=== PATIENT | male | born 1955 | race Caucasian/White ===

== ENCOUNTER 2017-04-25 16:18 | Emergency (ER) | payer OTHER, MEDICAID ==
--- NOTE | 2017-04-25 16:41 | EDPHY ---
H & P Time Seen by Provider: 04/25/17 16:36 - Personal History Tetanus Vaccine Date: 08/02 - Medical/Surgical History Hx Asthma: No Hx Chronic Respiratory Disease: No Hx Diabetes: Yes Hx Cardiac Disease: No Hx Renal Disease: Yes Hx Cirrhosis: Yes Hx Alcoholism: No Hx HIV/AIDS: No Hx Splenectomy or Spleen Trauma: No Other PMH: End-stage Hepatitis C, cirrhosis, diabetes, osteoarthritis, foot surgery, opiate dependence, chronic abdominal and leg pain - Social History Smoking Status: Current every day smoker Constitutional: Initial Vital Signs Temperature (C) 36.7 C 04/25/17 17:14 Heart Rate 60 04/25/17 17:14 Respiratory Rate 16 04/25/17 17:14 Blood Pressure 123/69 H 04/25/17 17:14 O2 Sat (%) 97 04/25/17 17:14 O2 Delivery Mode Room Air Allergies/Adverse Reactions: cyclobenzaprine HCl [From Flexeril] Allergy (Verified 09/09/14 12:34) mold Allergy (Uncoded 09/09/14 12:34) seasonal allergies Allergy (Uncoded 09/09/14 12:34) Home Medications: Medication Instructions Recorded Albuterol [Proventil Inhaler HFA 1 puffs IH QID #1 mdi 03/04/15 (*)] Doxepin HCl [SINEquan 10 MG (*)] 10 mg PO HS #30 cap 03/04/15 Gabapentin [Neurontin 100 MG (*)] 100 mg PO TID #90 cap 03/04/15 Hydrochlorothiazide [HCTZ (*)] 12.5 mg PO DAILY #15 tab 03/04/15 Ipratropium/Albuterol [Combivent 1 inh IH QID #1 mdi 03/04/15 Respimat Inhal [place](*)] Lisinopril [Zestril 40 mg (*)] 40 mg PO DAILY #30 tab 03/04/15 Metoprolol Tartrate [Lopressor 25 25 mg PO BID #60 tab 03/04/15 mg (*)] Miconazole Nitrate [Micatin 2% 1 elizabeth TP DAILY PRN 30 Days 03/04/15 Cream (*)] Venlafaxine Xr [Effexor Xr] 150 mg PO DAILY #30 cap 03/04/15 Zolpidem Tartrate [Ambien 5MG (*)] 5 mg PO HS PRN #0 tab 03/04/15 amLODIPine BESYLATE [Norvasc 5 mg 5 mg PO HS #30 tab 03/04/15 (*)] morphINE IR [morphINE IR 15 mg (*)] 15 mg PO Q6 PRN #12 tab 09/05/15 Medical Decision Making - Diagnostics Imaging Results: Imaging Impressions Ribs w/Chest X-Ray 04/25/17 16:49 Impression: 3 left rib fractures.. Imaging: I viewed and interpreted images myself ED Course/Re-evaluation: CHIEF COMPLAINT: Rib pain HISTORY OF PRESENT ILLNESS: This patient is a 62 year old male complaining of left-sided rib pain and left leg pain secondary to a mechanical fall earlier today. He is managed for chronic rib and abdominal pain. He fell on his left side, and has pain in his left ribs and his left knee, and feels he may have a pinched nerve in his leg. He endorses abdominal pain, but this is not different from his usual chronic pain. No fever, chills, vomiting, or other associated symptoms. He cannot identify any precipitating medical event or concerns. REVIEW OF SYSTEMS: A 10 point review of systems was performed and is negative with the exception of the elements mentioned in the history of present illness. PHYSICAL EXAM: HR, BP, O2 Sat, RR. Temp noted General Appearance: Alert, well hydrated, appropriate, and non-toxic appearing. Head: Atraumatic without scalp tenderness or obvious injury Eyes: Pupils equal, round, reactive to light and accommodation, EOMI, no trauma , no injection. Ears: Clear bilaterally, no perforation, normal landmarks Nose: Atraumatic, no rhinorrhea, clear. Throat: There is no erythema or exudates, no lesions, normal tonsils, mucus membranes moist. Neck: Supple, 2+ carotid upstroke, nontender, no lymphadenopathy. Respiratory: No retractions, no distress, no wheezes, and no accessory muscle use. Lungs are clear to auscultation bilaterally. Cardiovascular: Regular rate and rhythm, no murmurs, rubs, or gallops. Good capillary refill all extremities. Gastrointestinal: Abdomen is soft, nontender, non-distended, no masses, no rebound, no guarding, no peritoneal signs. Musculoskeletal: Tenderness to left ribs. Normal active ROM of all extremities , atraumatic. Neurological: Alert, appropriate, and interactive. The patient has normal DTRs and non-focal cranial nerves, motor, sensory, and cerebellar exam. Skin: Abrasions to left knee, left elbow. No rashes, good turgor, no nodules on palpation. Past medical history: End-stage Hepatitis C, Cirrhosis, Diabetes, Osteoarthritis , Opiate dependence, Chronic abdominal and leg pain Past surgical history: Foot surgery Family history: Noncontributory Social history: Lives at [facility]. Current tobacco use. DIFFERENTIAL DIAGNOSIS: The differential diagnosis for the patient's trauma included but was not limited to intracranial injury, long bone and pelvic bone fractures, spinal injury, intra-abdominal injury, and intra-thoracic injury. MEDICAL DECISION MAKIN62 year old male presents with left rib pain and leg pain secondary to a fall. Physical exam reveals abrasions to left elbow and left knee. Plan for x-ray of chest and ribs. X-ray reveals 3 left rib fractures. Plan to discharge home in good condition. Follow up and return precautions discussed. The patient is comfortable with this plan. Departure - Departure Disposition: Home, Routine, Self-Care Clinical Impression: Rib contusion Qualifiers: Encounter type: initial encounter Laterality: left Qualified Code(s): S20.212A - Contusion of left front wall of thorax, initial encounter Rib fracture Qualifiers: Encounter type: initial encounter Rib fracture type: multiple ribs Fracture type: closed Laterality: left Qualified Code(s): S22.42XA - Multiple fractures of ribs, left side, initial encounter for closed fracture Condition: Good Instructions: Rib Fracture (ED), Rib Contusion (ED) Additional Instructions: 1. Maintain your current pain control medication regimen for pain relief. 2. Follow up with your primary care provider next week for continuing concerns. Follow up with orthopedics for continued management of your rib fractures as directed. 3. Return to the emergency department for uncontrollable pain, shortness of breath, chest pain, fever, or other worsening of condition. Referrals: [facility],. [Clinic] - As per Instructions Patient,NotPresent [Unknown] - As per Instructions Sean Calzada MD [Medical Doctor] - As per Instructions Report Scribed for: Pawel Fair Report Scribed by: Liz Campa Date of Report: 04/25/17 Time of Report: 16:44
[2017-04-25 17:19] VITALS: RESP 16; TEMP 98.1; O2SAT 97
[2017-04-25 17:55] VITALS: BP 102/69; PULSE 58
== END 2017-04-25 17:55 | disposition home or self-care (01) ==
LOC: EDUNIT#
DX: S22.42XA Multiple fractures of ribs, left side, initial encounter for closed fracture (principal); S20.212A Contusion of left front wall of thorax, initial encounter; E11.9 Type 2 diabetes mellitus without complications; F17.200 Nicotine dependence, unspecified, uncomplicated; W18.39XA Other fall on same level, initial encounter

== ENCOUNTER 2017-06-30 06:01 | Emergency (ER) | payer OTHER, MEDICAID ==
--- NOTE | 2017-06-30 06:29 | EDPHY ---
H & P HPI/ROS: HPI The patient presents brought in by ambulance asking for medical clearance to go to [facility] for or detox from morphine and lorazepam which he has been taking long-term for lower back pain. He currently has resides at [facility] and has been there for the last 2 and half years, previously he was homeless. He had some issues with his pain medication according to the cyanide case hardener at [facility], sometimes claiming that he did not receive his morphine. Thus, on June 20 he was changed from morphine 30 mg three times daily to Embeda, in attempt to wean him from his opiates. Also, his lorazepam which he previously received 1 mg twice daily was tapered on June 16. Apparently he is followed by a pain specialist clinic, however they are firing him from their practice. He does complain of right-sided leg pain after assisting another resident today weak, wheeling her around the facility. The pain is achy, throughout his leg, is worse with ambulation. He does not have any swelling of the leg. REVIEW OF SYSTEMS Constitutional: No fever, no chills. Eyes: No discharge. ENT: No sore throat. Cardiovascular: No chest pain, no palpitations. Respiratory: No cough, no shortness of breath. Gastrointestinal: No abdominal pain, no vomiting. Genitourinary: No hematuria. Musculoskeletal: No back pain. Skin: No rashes. Neurological: No headache. PMHx: COPD, hypertension, type 2 diabetes, hepatitis-C, chronic pain Soc Hx: Resides at [facility] PHYSICAL General Appearance: Alert, no distress Eyes: Pupils equal and round no pallor or injection ENT, Mouth: Mucous membranes moist Respiratory: There are no retractions, lungs are clear to auscultation Cardiovascular: Regular rate and rhythm Gastrointestinal: Abdomen is soft and non-tender, no masses, bowel sounds normal Neurological: A&O, moves all extremities Skin: Warm and dry, no rashes Musculoskeletal: Neck is supple non tender Extremities: symmetrical, full range of motion Psychiatric: Patient is oriented X 3, there is no agitation Source: Patient Exam Limitations: No limitations - Personal History Tetanus Vaccine Date: 08/02 - Medical/Surgical History Hx Asthma: No Hx Chronic Respiratory Disease: No Hx Diabetes: Yes Hx Cardiac Disease: No Hx Renal Disease: Yes Hx Cirrhosis: Yes Hx Alcoholism: No Hx HIV/AIDS: No Hx Splenectomy or Spleen Trauma: No Other PMH: End-stage Hepatitis C, cirrhosis, diabetes, osteoarthritis, foot surgery, opiate dependence, chronic abdominal and leg pain - Social History Smoking Status: Current every day smoker Allergies/Adverse Reactions: cyclobenzaprine HCl [From Flexeril] Allergy (Verified 06/30/17 06:22) mold Allergy (Uncoded 06/30/17 06:22) seasonal allergies Allergy (Uncoded 06/30/17 06:22) Home Medications: Medication Instructions Recorded Albuterol [Proventil Inhaler HFA 1 puffs IH QID #1 mdi 03/04/15 (*)] Doxepin HCl [SINEquan 10 MG (*)] 10 mg PO HS #30 cap 03/04/15 Gabapentin [Neurontin 100 MG (*)] 100 mg PO TID #90 cap 03/04/15 Hydrochlorothiazide [HCTZ (*)] 12.5 mg PO DAILY #15 tab 03/04/15 Ipratropium/Albuterol [Combivent 1 inh IH QID #1 mdi 03/04/15 Respimat Inhal [place](*)] Lisinopril [Zestril 40 mg (*)] 40 mg PO DAILY #30 tab 03/04/15 Metoprolol Tartrate [Lopressor 25 25 mg PO BID #60 tab 03/04/15 mg (*)] Miconazole Nitrate [Micatin 2% 1 elizabeth TP DAILY PRN 30 Days cream 03/04/15 Cream (*)] Venlafaxine Xr [Effexor Xr] 150 mg PO DAILY #30 cap 03/04/15 Zolpidem Tartrate [Ambien 5MG (*)] 5 mg PO HS PRN #0 tab 03/04/15 amLODIPine BESYLATE [Norvasc 5 mg 5 mg PO HS #30 tab 03/04/15 (*)] morphINE IR [morphINE IR 15 mg (*)] 15 mg PO Q6 PRN #12 tab 09/05/15 Medical Decision Making Differential Diagnosis: This is a 62-year-old man brought in by ambulance from [facility] with past medical history of COPD, hypertension, type 2 diabetes, hepatitis-C who presents asking for detox at [facility] from morphine and lorazepam. Over the last 2 weeks, his facility has been attempting to taper his medications. It seems he is dissatisfied with the way they are doing this and he says that the nurses are "pushing him out". We were able to contact [facility] and the cyanide case hardener that we spoke with their reported that there was some concern that the patient was abusing his pain medication and thus they initiated this taper. The patient has been fired from his pain management clinic as well. We were able to reach [facility] and they tell us that they have spoken with the patient on the phone and they have have instructed him that he needs to call to make an appointment for intake at their facility as an outpatient and they have told him not to go to the emergency department actually. Once he makes an appointment, then he can arrange for further care there if appropriate. I feel this is misuse the emergency department and I have explained this to the patient. He will be discharged back to [facility]. He has no concerning symptoms or physical exam features for his leg pain. I doubt that he has a DVT , fracture, dislocation of any sort. He likely has a sprain or strain of his leg from the walking today. Departure - Departure Disposition: Home, Routine, Self-Care Clinical Impression: Right leg pain Back pain Qualifiers: Back pain location: low back pain Chronicity: chronic Back pain laterality: unspecified Sciatica presence: unspecified whether sciatica present Qualified Code(s): M54.5 - Low back pain Condition: Good Instructions: Leg Pain (ED) Additional Instructions: I recommend that when you return back to [facility] to call [facility] and arranged for an appointment to go for an intake for detox there. You can return to the emergency room if your worse in any way.
[2017-06-30 06:37] VITALS: BP 163/82; PULSE 77; RESP 20; TEMP 98.1; O2SAT 94
== END 2017-06-30 07:24 | disposition home or self-care (01) ==
LOC: EDUNIT#
DX: M54.5 Low back pain (principal); M79.604 Pain in right leg; J44.9 Chronic obstructive pulmonary disease, unspecified; I10 Essential (primary) hypertension; E11.9 Type 2 diabetes mellitus without complications; F17.200 Nicotine dependence, unspecified, uncomplicated

== ENCOUNTER 2017-07-11 02:37 | Inpatient (IN) | payer OTHER, MEDICAID ==
[2017-07-11] MEDS ORDERED: AMPICILLIN/SULBACTAM 3 GM in NS 100 ML IV ONE (02:44)
[2017-07-11 03:02] LABS: % IMMATURE GRANULYOCYTES 0.4 % (0.0-1.1); ABSOLUTE IMMATURE GRANULOCYTES 0.03 10^3/uL (0.00-0.10); ADD DIFF? NO; ADD MORPH? NO; ADD SCAN? NO; ATYPICAL LYMPHOCYTE FLAG 0 (0-99); FRAGMENT RBC FLAG 0 (0-99); HEMATOCRIT 38.5 % (40.0-51.0); HEMOGLOBIN 14.1 g/dL (13.7-17.5); LEFT SHIFT FLG 0 (0-99); LIPEMIA HEMOLYSIS FLAG 90 (0-99); MEAN CELL HEMOGLOBIN 30.2 pg (27.9-34.1); MEAN CELL HEMOGLOBIN CONCENTR. 36.6 g/dL (32.4-36.7); MEAN CELL VOLUME 82.4 fL (81.5-99.8); MEAN PLATELET VOLUME 9.7 fL (8.7-11.7); PLATELET CLUMPS FLAG 0 (0-99); PLATELET COUNT 124 10^3/uL (150-400); RED BLOOD CELL COUNT 4.67 10^6/uL (4.40-6.38); RED CELL DISTRIBUTION WIDTH 13.8 % (11.5-15.2)
[2017-07-11 03:16] LABS: ALANINE AMINOTRANSFERASE 38 IU/L (21-72); ALBUMIN 3.3 g/dL (3.5-5.0); ALKALINE PHOSPHATASE 59 IU/L (38-126); ANION GAP 13 mEq/L (8-16); ASPARTATE AMINOTRANSFERASE 19 IU/L (17-59); BILIRUBIN,TOTAL 0.3 mg/dL (0.1-1.4); CARBON DIOXIDE 24 mEq/l (22-31); CHLORIDE 106 mEq/L (97-110); CREATININE 0.8 mg/dL (0.7-1.3); GLOMERULAR FILTRATION RATE > 60; GLUCOSE 133 mg/dL (70-100); POTASSIUM 3.8 mEq/L (3.5-5.2); SODIUM 143 mEq/L (134-144); TOTAL PROTEIN 6.2 g/dL (6.3-8.2)
--- NOTE | 2017-07-11 03:39 | EDPHY ---
H & P Stated Complaint: reddness on L lower leg and foot Time Seen by Provider: 07/11/17 02:42 HPI/ROS: HPI The patient presents brought in by ambulance from [facility] where he resides for left foot and leg redness and pain. He initially developed what he thought was a great toe infection and had intermittent bleeding of his toe. Over the last 1 day there has been increased redness of his left foot and leg associated with increased pain. A dispatch medical unit came yesterday to draw his blood. He has not been on any antibiotics. He has not had any fevers or chills. He does have diabetes, however his blood glucoses have been normal lately he says.. REVIEW OF SYSTEMS Constitutional: No fever, no chills. Eyes: No discharge. ENT: No sore throat. Cardiovascular: No chest pain, no palpitations. Respiratory: No cough, no shortness of breath. Gastrointestinal: No abdominal pain, no vomiting. Genitourinary: No hematuria. Musculoskeletal: No back pain. Skin: No rashes. Neurological: No headache. PMHx: Diabetes, hepatitis-C, chronic pain Soc Hx: Resides at [facility], assisted living portion PHYSICAL General Appearance: Alert, no distress Eyes: Pupils equal and round no pallor or injection ENT, Mouth: Mucous membranes moist Respiratory: There are no retractions, lungs are clear to auscultation Cardiovascular: Regular rate and rhythm Gastrointestinal: Abdomen is soft and non-tender, no masses, bowel sounds normal Neurological: A&O, moves all extremities Skin: Warm and dry, no rashes Musculoskeletal: Neck is supple non tender Extremities: Left great toe is erythematous, tip has area of slight necrosis which is dry, there is no active drainage, there is erythematous streaking of the dorsum of his foot and his medial leg which has been circled with a pen, he has full range of motion of his ankle Psychiatric: Patient is oriented X 3, there is no agitation Source: Patient, EMS Exam Limitations: No limitations - Personal History Current Tetanus/Diphtheria Vaccine: Yes Current Tetanus Diphtheria and Acellular Pertussis (TDAP): Yes Tetanus Vaccine Date: 08/02 - Medical/Surgical History Hx Asthma: No Hx Chronic Respiratory Disease: No Hx Diabetes: Yes Hx Cardiac Disease: No Hx Renal Disease: Yes Hx Cirrhosis: Yes Hx Alcoholism: No Hx HIV/AIDS: No Hx Splenectomy or Spleen Trauma: No Other PMH: End-stage Hepatitis C, cirrhosis, diabetes, osteoarthritis, foot surgery, opiate dependence, chronic abdominal and leg pain - Social History Smoking Status: Current every day smoker Constitutional: Initial Vital Signs Temperature (C) 36.7 C 07/11/17 02:42 Heart Rate 76 07/11/17 02:42 Respiratory Rate 16 07/11/17 02:42 Blood Pressure 115/69 07/11/17 02:42 O2 Sat (%) 97 07/11/17 02:42 O2 Delivery Mode Room Air Allergies/Adverse Reactions: cyclobenzaprine HCl [From Flexeril] Allergy (Verified 07/11/17 02:41) mold Allergy (Uncoded 07/11/17 02:41) seasonal allergies Allergy (Uncoded 07/11/17 02:41) Home Medications: Medication Instructions Recorded Albuterol [Proventil Inhaler HFA 1 puffs IH QID #1 mdi 03/04/15 (*)] Doxepin HCl [SINEquan 10 MG (*)] 10 mg PO HS #30 cap 03/04/15 Gabapentin [Neurontin 100 MG (*)] 100 mg PO TID #90 cap 03/04/15 Hydrochlorothiazide [HCTZ (*)] 12.5 mg PO DAILY #15 tab 03/04/15 Ipratropium/Albuterol [Combivent 1 inh IH QID #1 mdi 03/04/15 Respimat Inhal [place](*)] Lisinopril [Zestril 40 mg (*)] 40 mg PO DAILY #30 tab 03/04/15 Metoprolol Tartrate [Lopressor 25 25 mg PO BID #60 tab 03/04/15 mg (*)] Miconazole Nitrate [Micatin 2% 1 elizabeth TP DAILY PRN 30 Days cream 03/04/15 Cream (*)] Venlafaxine Xr [Effexor Xr] 150 mg PO DAILY #30 cap 03/04/15 Zolpidem Tartrate [Ambien 5MG (*)] 5 mg PO HS PRN #0 tab 03/04/15 amLODIPine BESYLATE [Norvasc 5 mg 5 mg PO HS #30 tab 03/04/15 (*)] morphINE IR [morphINE IR 15 mg (*)] 15 mg PO Q6 PRN #12 tab 09/05/15 Medical Decision Making - Diagnostics Imaging Results: X-ray left foot shows no fracture, no foreign body, no obvious osteomyelitis, interpreted by me, radiology interpretation is pending. Differential Diagnosis: 62-year-old man brought in by ambulance from long-term who has a past medical history of diabetes presents with left-sided foot pain and redness. Differential diagnosis includes diabetic foot infection, ischemia, cellulitis. The emergency department, labs were checked and were unremarkable including an ESR. CRP was just slightly elevated. He was given a dose of Unasyn for diabetic foot infection. X-ray showed no obvious osteomyelitis. Given his history of diabetes, I feel he should be admitted to the hospital for antibiotics. I have discussed the case with Dr. Payne and we will admit the patient. - Data Points Laboratory Results: Laboratory Results 07/11/17 02:39 07/11/17 02:39 07/11/17 07/11/17 02:39 02:39 WBC 8.46 10^3/uL 10^3/uL (3.80-9.50) RBC 4.67 10^6/uL 10^6/uL (4.40-6.38) Hgb 14.1 g/dL g/dL (13.7-17.5) Hct 38.5 % L % (40.0-51.0) MCV 82.4 fL fL (81.5-99.8) MCH 30.2 pg pg (27.9-34.1) MCHC 36.6 g/dL g/dL (32.4-36.7) RDW 13.8 % % (11.5-15.2) Plt Count 124 10^3/uL L 10^3/uL (150-400) MPV 9.7 fL fL (8.7-11.7) Neut % (Auto) 49.8 % % (39.3-74.2) Lymph % (Auto) 35.2 % % (15.0-45.0) [place] % (Auto) 12.2 % % (4.5-13.0) Eos % (Auto) 1.9 % % (0.6-7.6) Baso % (Auto) 0.5 % % (0.3-1.7) Nucleat RBC Rel Count 0.0 % % (0.0-0.2) Absolute Neuts (auto) 4.22 10^3/uL 10^3/uL (1.70-6.50) Absolute Lymphs (auto) 2.98 10^3/uL 10^3/uL (1.00-3.00) Absolute Monos (auto) 1.03 10^3/uL H 10^3/uL (0.30-0.80) Absolute Eos (auto) 0.16 10^3/uL 10^3/uL (0.03-0.40) Absolute Basos (auto) 0.04 10^3/uL 10^3/uL (0.02-0.10) Absolute Nucleated RBC 0.00 10^3/uL 10^3/uL (0-0.01) Immature Gran % 0.4 % % (0.0-1.1) Immature Gran # 0.03 10^3/uL 10^3/uL (0.00-0.10) ESR 16 MM/HR MM/HR (0-20) Sodium 143 mEq/L mEq/L (134-144) Potassium 3.8 mEq/L mEq/L (3.5-5.2) Chloride 106 mEq/L mEq/L (97-110) Carbon Dioxide 24 mEq/l mEq/l (22-31) Anion Gap 13 mEq/L mEq/L (8-16) BUN 38 mg/dL H mg/dL (7-23) Creatinine 0.8 mg/dL mg/dL (0.7-1.3) Estimated GFR > 60 Glucose 133 mg/dL H mg/dL (70-100) Calcium 9.0 mg/dL mg/dL (8.5-10.4) Total Bilirubin 0.3 mg/dL mg/dL (0.1-1.4) AST 19 IU/L IU/L (17-59) ALT 38 IU/L IU/L (21-72) Alkaline Phosphatase 59 IU/L IU/L (38-126) C-Reactive Protein 28.0 mg/L H mg/L (<10.0) Total Protein 6.2 g/dL L g/dL (6.3-8.2) Albumin 3.3 g/dL L g/dL (3.5-5.0) Medications Given: Discontinued Medications Ampicillin Sodium/Sulbactam (Sodium 3 gm/ Sodium Chloride) 100 mls @ 200 mls/ hr IV EDNOW ONE PRN Reason: Protocol Stop: 07/11/17 03:13 Last Admin: 07/11/17 03:23 Dose: 100 mls Departure - Departure Disposition: [facility] Acute Clinical Impression: Diabetic foot infection Condition: Fair
[2017-07-11 03:40] LABS: SEDIMENTATION RATE 16 MM/HR (0-20)
[2017-07-11] MEDS ORDERED: ONDANSETRON 4 MG/2 ML VIAL IVP PRN (05:34)
[2017-07-11] MEDS ORDERED: LORazepam 0.5 MG TAB PO PRN (05:34)
[2017-07-11] MEDS ORDERED: diphenhydrAMINE 25 MG CAP PO PRN ×2 (05:34→11:43)
[2017-07-11] MEDS ORDERED: NS 1,000 ML IV SCH (05:45)
[2017-07-11] MEDS ORDERED: D50W 25 GM/50 ML SYR IVP PRN (05:58)
[2017-07-11] MEDS ORDERED: NALOXONE HCL 0.4 MG/ML INJ IVP PRN (06:11)
[2017-07-11] MEDS ORDERED: D10W 250 ML PRN HYPOGLYCEMIA IV (06:30)
[2017-07-11] MEDS ORDERED: INSULIN LISPRO 100 UNIT/ML SC SCH (08:00)
[2017-07-11] MEDS: INSULIN LISPRO 100 UNIT/ML SC SCH ×3 (08:00→17:54)
[2017-07-11] MEDS: NADOLOL 20 MG TAB PO SCH ×2 (08:06→09:52)
[2017-07-11] MEDS: morphINE SR 60 MG TAB PO SCH ×2 (08:06→21:20)
[2017-07-11] MEDS: GABAPENTIN 100 MG CAP PO SCH ×4 (08:08→21:21)
[2017-07-11] MEDS: amLODIPine BESYLATE 5 MG TAB PO SCH (08:08)
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
[2017-07-11] MEDS ORDERED: AMPICILLIN/SULBACTAM 1.5 GM in NS 50 ML IV SCH (09:00)
[2017-07-11] MEDS ORDERED: AMPICILLIN/SULBACTAM 3 GM in NS 100 ML IV SCH (09:00)
[2017-07-11] MEDS ORDERED: LISINOPRIL 40 MG TAB PO SCH (09:00)
[2017-07-11] MEDS ORDERED: HYDROCHLOROTHIAZIDE 25 MG TAB PO SCH (09:00)
[2017-07-11] MEDS ORDERED: METOPROLOL TARTRATE 25 MG TAB PO SCH (09:00)
[2017-07-11] MEDS ORDERED: NICOTINE 14 MG/24 HR PATCH TD PRN (09:31)
[2017-07-11] MEDS: AMPICILLIN/SULBACTAM 3 GM in NS 100 ML IV SCH ×3 (09:51→21:19)
[2017-07-11] MEDS: LORazepam 0.5 MG TAB PO PRN ×2 (09:53→21:20)
--- NOTE | 2017-07-11 09:57 | WOCRNPDOC ---
WOCRN Advanced Assessment Note - Skin Integrity Problem, Advanced Assess Left First Toe Diabetic Ulcer Dressing Type: Open to Air Exudate Amount: None Carmen Wound Tissue: Calloused Wound Bed Color: Black Site Measurement - Head-to-Toe Length X Width X Depth (cm): 0.5x0.5x0.1 Skin Integrity Problem Comment: Pinpoint opening on toe. Patient needs to see pointer machine operator for callous debridement and foot care. Erythema on dorsal foot and lower leg. Patient with neuropathic and venous changes bilaterally. Patient refused compression socks. May cover wound with bandaid and apply atractain to bilateral lower legs and feet except between toes BID. Wound care will sign off.
[2017-07-11] MEDS ORDERED: LOPERAMIDE HCL 2 MG CAP PO PRN (11:43)
[2017-07-11] MEDS ORDERED: MICONAZOLE NITRATE 28 GM CRTUBE TP PRN (11:43)
[2017-07-11] MEDS ORDERED: MAGNESIUM HYDROXIDE 30 ML UDCUP PO PRN (11:43)
[2017-07-11] MEDS ORDERED: MAG HYDROX/AL HYDROX/SIMETH 30 ML UDCUP PO PRN (12:00)
--- NOTE | 2017-07-11 14:42 | HOSPPROG ---
Hospitalist Progress Note Assessment/Plan: 62y male with c/o toe pain. First encounter, chart reviewed. D/W Podiatry. #L diabetic foot ulcer cont IV unasyn await podiatry consult likely needs surgical intervention #Diabetic follow blood glucose refusing finger sticks #Cellulitis getting better #HTN stable #Hx Hep C stable #Dispo unclear, need further evaluation and treatment change to inpt status await podiatry input Subjective: Up walking around. Doing well. Some pain. Objective: Vital Signs Temp Pulse Resp BP Pulse Ox 36.6 C 66 16 99/69 L 97 07/11/17 12:30 07/11/17 12:30 07/11/17 12:30 07/11/17 12:30 07/11/17 12:30 07/10/17 07/11/17 07/12/17 05:59 05:59 05:59 Intake Total 100 Balance 100 - Physical Exam Constitutional: appears nourished, chronically ill appearing, uncomfortable Eyes: PERRL, anicteric sclera, EOMI Ears, Nose, Mouth, Throat: moist mucous membranes, hearing normal, ears appear normal Cardiovascular: regular rate and rhythym, No JVD, No edema Respiratory: no respiratory distress, no rales or rhonchi, reduced air movement Gastrointestinal: normoactive bowel sounds, No tenderness, No ascites Skin: warm, normal color, No mottled Musculoskeletal: normal joint ROM, pain with ROM, generalized weakness Neurologic: AAOx3 Psychiatric: interacting appropriately, not anxious, not encephalopathic ICD10 Worksheet Patient Problems: Problems Problem Status Onset Depression Acute Hepatitis C virus infection Acute Nicotine dependence Acute Pneumonia Acute Diabetic foot infection Acute
[2017-07-11] MEDS: tiZANidine HCL 2 MG TAB PO SCH ×2 (15:57→21:21)
--- NOTE | 2017-07-11 15:59 | ASMTCASEMG ---
Living Arrangements What is your living Answers: Alone arrangement? Who do you live with? Type Of Residence What kind of residence do Answers: House you live in? Discharge Plan Comments Coordination Status Comments Notes: Pt is a 62 y/o man admitted w/ diabetic foot infection. Pt is currently on IV antibotics. Pt resides at [facility]. Wound care is following pt at this time. PT is ordered and awaiting for recommendations. Needs are unclear at this time. CM to follow. Date Signed: 07/11/2017 03:58 PM Electronically Signed By:BERTA Owen
--- NOTE | 2017-07-11 16:55 | PDMN ---
Medical Necessity Medical necessity: change to IP; est los>2mn for diabetic foot ulcer and cellulitis;for IV abx, and podiatry consult for likely surgical intervention; comorbid DM (refusing glucose checks), HTN, hx hep C; per order and progress note 07/11/17
[2017-07-11] MEDS: DOXEPIN HCL 10 MG CAP PO SCH (18:01)
[2017-07-11] MEDS ORDERED: INSULIN GLARGINE 100 UNITS/ML SYRINGE SC SCH (21:00)
[2017-07-11] MEDS ORDERED: DOXEPIN HCL 10 MG CAP PO SCH (21:00)
[2017-07-11] MEDS: MORPHINE SULFATE PO SCH (21:20)
[2017-07-11] MEDS: NALTREXONE PO SCH (21:20)
[2017-07-11] MEDS: INSULIN GLARGINE 100 UNITS/ML SYRINGE SC SCH (21:20)
[2017-07-11] MEDS: VENLAFAXINE XR 75 MG CAP PO SCH (21:21)
--- NOTE | 2017-07-12 01:01 | PDCONSULT ---
[employer] Note: Behavioral Health Consultation Consult requested by Hospitalist service for evaluation on vague suicidal ideation. Date of consult request: 07/11/17. Date of evaluation: 07/11/17 Brief History Patient interviewed this afternoon. EMR reviewed. 62yo CM with multiple medical problems, and long history of substance use d/o ( opiates and bzds), also with history of personality disorder and chronic suicidality, admitted to medical unit for treatment of diabetic foot ulcer. Pt endorsed chronic passive suicidal ideation (SI), but no plan or intent to harm himself or end his life early, " I'm not gonna do anything to end my life, but I don't want any extraordinary life saving measures". Has hx of several suicide threats and attempts in past by OD, with last inpt psych at [facility] in 2013, but has been in stable living setting at [facility] assisted living for 2.5 yrs which has been very helpful for him. They monitor and dispense his medications. Denies any mood d/o sxs or psychosis. Endorses chronic hypervigilance, +insomnia , occasional nightmares/FB and anxiety. Reports managing this with relaxation and meditation strategies he has learned over the years b/c nothing else really helps. Is on Ativan taper as outpt. Denied any problems with continuing on Effexor XR 150mg qd which he has been on since 2013 on [facility], and rx'd by PCP. Does not feel he needs outpt psych therapist or psychiatrist, although has been with [facility] in the past. He does not want any mental health follow-up or change in medications, and expressed knowing how to seek help if he felt that need change. States he recently received letter (dated 06/27/17) from pain clinic (" [facility]" in [place]) that they are discharging him, apparently b/c he has been in violation of pain contract. Has been receiving pain meds from there since around 02/2017, and started with them "because they don't check for marijuana" in [place], like they did at other pain clinics. +THC "3-4 puffs 2x/week", denies any EtOH or any other illicit substances. States staff at [facility] "are trying to find reasons to kick me out" b/c they have searched his room more often, "going through my stuff", and are doing very thorough mouth checks. "They almost kicked me out b/c they found diabetic needles in my room...but I'm a diabetic!" Apparently this was a violation. States he had to get his advocate ("Fadia Griffin, Officer of the [address]") involved to help him stay at current housing, "but . Has pain meds for rest of month at [facility], but not sure what he will do if not able to find another pain clinic to continue prescribing. States his PCP Dr. Misha Fierro at [facility], who knows him well, "is not allowed to give me any Ativan or pain meds". Pt proceeded to complain about new opiate regulations... States he is "too old to dry detox" from opiates, so has researched options and would plan to go for detox at [facility] if necessary, "because [facility] won't take me with all my medical problems". Mental status exam: overweight CM wearing hosp gown, ambulating steadily across room to sit for interview. Good eye contact, engaging, talkative, nml psychomotor activity, slightly unkempt siegel hair, unshaven with moustache, wearing hat. speech nml rate/vol, gruff tone, edentulous upper, mood "I'm fine" , affect full range and appropriate to content of interview, making jokes at times, denied any thoughts/plan/intent to harm others or himself, but endorsed chronic passive SI stating if anything happened to him, he was fine with that, but wasn't going to do anything to end his life. expressed future-oriented thoughts/planning, seemed to recognize potential consequences for his recent behaviors and able to list some options for potential problems. denied any psychotic sxs, no AH/VH, and there was no evidence of any thought disorder, no delusional or paranoid thoughts expressed, and pt did not appear responding to any internal stimuli. insight fair, judgment fair. seems may have some tendency towards impulsivity. cognition seemed conversationally intact. Impression: 62yo CM with long history of substance use, also personality disorder and with history of suicidal attempts, admitted medically but with no acute concerns present for self harm. Historically it seems psychosocial stressors, notably homelessness, were precipitants to his suicide attempts, also substance use, but with housing presently stable and prescriptions consistent, he has not seemed to be in psychiatric crisis for quite some time. This could change, however, as patient reports now being d/cd from pain clinic and on notice for staying in his assisted living. He currently does not want any mental health follow-up or change in medications, and stated he knew how to seek help if he felt that need change. He consistently denied any suicidality. He was future-oriented, although not with an ideal solution, to move out of state once getting his SSDI money, if he were to lose housing or not find a provider for his pain meds. Diagnosis: personality d/o, unspecified with borderline, dependent and histrionic traits by history, with chronic suicidal ideation opiate use d/o, anxiolytic use d/o nicotine use d/o Recommendations: -No indication for M-1 hold or inpt admission, and does not meet criteria for this. Not felt to be acutely at risk for self harm. -cont Effexor XR 150mg as before. pt doesn't want change of this med. -Pt would like d/c of Doxepin, feels it only gives him dry mouth and no benefit. plans to refuse it. depending on who long he has been on this medication (may have been on this for a few years), may be better to taper. -pt states he will stay in hosp for treatment for least amount of time necessary , then will leave AMA if he has to. advised against this and to work with primary team around LOS. -does request to leave for walk outside, was frustrated with security being called this AM when wanting to go off unit, admits he is a smoker, so nicotine craving may be contributing, altho concerns also present around his hx of substance use -unit certified social workers in health care given info which pt provided above to obtain collateral and to help w/arranging f/u- notably his PCP Dr. Misha Fierro at [facility], appeals court associate justice Fadia Griffin, Officer of the [address], and pain clinic [facility]" in [place] from where he has been recently terminated/ discharged. -would coordinate with PCP and Alcides, also Lisandro Orellana, regarding Rx for controlled substances, if any, to be provided at discharge- this has clearly been closely monitored as an outpt -per pt, appeals court associate justice helped him not get kicked out of [facility], and he has been allowed to return there "on the severest of restrictions". could f/u on this for more details if pt allows collateral. Homelessness was a trigger for his suicide attempts in the past, altho states if not allowed to return there, would leave state for a border community when gets his next check. Thank you for the consultation. please feel free to call again if any further behavioral health issues arise.
[2017-07-12] MEDS: AMPICILLIN/SULBACTAM 3 GM in NS 100 ML IV SCH ×4 (04:05→21:04)
[2017-07-12] MEDS: amLODIPine BESYLATE 5 MG TAB PO SCH (08:01)
[2017-07-12] MEDS: tiZANidine HCL 2 MG TAB PO SCH ×3 (08:01→22:40)
[2017-07-12] MEDS: HYDROCHLOROTHIAZIDE 25 MG TAB PO SCH (08:06)
[2017-07-12] MEDS: morphINE SR 60 MG TAB PO SCH ×2 (08:07→21:03)
[2017-07-12] MEDS: LISINOPRIL 40 MG TAB PO SCH (08:07)
[2017-07-12] MEDS: NADOLOL 20 MG TAB PO SCH (08:15)
[2017-07-12] MEDS: Meloxicam [Meloxicam] 7.5 MG PO SCH (08:15)
[2017-07-12] MEDS: INSULIN LISPRO 100 UNIT/ML SC SCH ×3 (08:20→19:13)
[2017-07-12] MEDS: GABAPENTIN 100 MG CAP PO SCH ×3 (08:21→21:26)
[2017-07-12] MEDS: NALTREXONE PO SCH ×2 (11:18→21:26)
[2017-07-12] MEDS: MORPHINE SULFATE PO SCH ×2 (11:18→21:26)
--- NOTE | 2017-07-12 11:24 | HOSPPROG ---
Hospitalist Progress Note Assessment/Plan: 62y male with c/o toe pain. D/W Podiatry, Dr Colon. #L diabetic foot ulcer cont IV unasyn await podiatry consult likely needs surgical intervention STAT MRI NPO #Diabetic follow blood glucose refusing finger sticks stable #Cellulitis conts #Psych appreciate Dr Ortiz see note #HTN stable #Hx Hep C stable #Dispo unclear, needs further evaluation and treatment change to inpt status await podiatry input Subjective: Feeling well. Still having foot pain. Objective: Vital Signs Temp Pulse Resp BP Pulse Ox 36.6 C 56 L 18 137/70 H 97 07/12/17 03:17 07/12/17 03:17 07/12/17 03:17 07/12/17 08:07 07/12/17 03:17 07/11/17 07/12/17 07/13/17 05:59 05:59 05:59 Intake Total 1675 Balance 1675 - Physical Exam Constitutional: chronically ill appearing, obese, uncomfortable Eyes: PERRL, anicteric sclera, EOMI Ears, Nose, Mouth, Throat: moist mucous membranes, hearing normal, ears appear normal Cardiovascular: regular rate and rhythym, No JVD, No edema Respiratory: no respiratory distress, no rales or rhonchi, reduced air movement Gastrointestinal: normoactive bowel sounds, No tenderness, No ascites Skin: warm, erythema, fluctuance Musculoskeletal: full muscle strength, joint tenderness, pain with ROM Neurologic: AAOx3 Psychiatric: not anxious, not encephalopathic, poor insight, poor judgement ICD10 Worksheet Patient Problems: Problems Problem Status Onset Depression Acute Hepatitis C virus infection Acute Nicotine dependence Acute Pneumonia Acute Diabetic foot infection Acute
[2017-07-12] MEDS ORDERED: ERGOCALCIFEROL 50,000 I.UNIT CAP PO SCH (11:43)
--- NOTE | 2017-07-12 13:34 | WOCRNPDOC ---
WOCRN Advanced Assessment Note - Skin Integrity Problem, Advanced Assess Left First Toe Diabetic Ulcer Dressing Type: Open to Air Exudate Amount: None Carmen Wound Tissue: Erythema, Hot, Calloused Carmen Wound Swelling: Moderate Wound Bed Constitution: Intact Purulent Blister Site Odor: None Skin Integrity Problem Comment: Re-consulted today by nursing for worsening wound on distal aspect of L great toe. There is a purulent, fluctuant, intact pocket of fluid noted over the distal/medial aspect of the L great toe, which was previously documented as a scab. Marked erythema from this digit across dorsal aspect of L foot and onto lower leg. Patient reports increased pain, presently 7/10. Stat MRI ordered by hospitalist to r/o osteo. Wound care will wait for results before initiating a treatment plan. Report given to rod greaser Jaimi.
[2017-07-12] MEDS: HYDROmorphONE/DILAUDID 1 MG/ML INJ IVP PRN ×3 (13:56→22:41)
--- NOTE | 2017-07-12 16:42 | ASMTCMCOM ---
CM Note CM Note Notes: Pt had a psych consult yesterday by Shani Ortiz MD. Shani did not deemed that pt is currently at risk for ending his life. Podiatry has been ordered to evaluate his toe. Pt may need possible surgical intervention. CM available for d/c needs. Date Signed: 07/12/2017 04:42 PM Electronically Signed By:BERTA Owen
[2017-07-12] MEDS ORDERED: GADOBUTROL 10 ML VIAL IVP ONE (16:44)
[2017-07-12] MEDS: DOXEPIN HCL 10 MG CAP PO SCH (19:13)
--- NOTE | 2017-07-12 19:14 | SOAPPROG ---
SOAP Progress Note Assessment/Plan: Assessment: 62 year old male with DM peripheral neuropathy with left great toe ulcer and cellulitis. Plan: X-rays and MRI reviewed. No evidence of osteo. Patient refused any treatment. Discussed results with patient and that there is no need for amputation of the toe. Bedside debridement performed in preop to reveal ulcer under callus. Wound culture obtained. Wet to dry dressing applied. Will consult Wound care for ulcer. Continue IV antibiotics. Will continued to follow. 07/12/17 19:10 07/12/17 19:18 Subjective: Podiatry was consulted for left great toe ulcer and possible osteomyelitis. 62 year old male with DM peripheral neuropathy admitted 07/11/17 with left great toe ulcer and cellulitis extending into ankle and lower leg. 6 week duration of callus and 3 day duration of swelling and infection. X-ray: no osteo. Objective: Vital Signs Temp Pulse Resp BP Pulse Ox 36.7 C 59 L 20 140/69 H 96 07/12/17 15:51 07/12/17 15:51 07/12/17 15:51 07/12/17 15:51 07/12/17 15:51 07/11/17 07/12/17 07/13/17 05:59 05:59 05:59 Intake Total 1675 Balance 1675 - Time Spent With Patient Time Spent With Patient: 30 minutes Physical Exam - Physical Exam General Appearance: alert, no apparent distress, anxiety Peripheral Pulses: 1+: dorsalis-pedis (L) Skin: other (cellulitis dorsal foot from great toe and medial ankle) Extremities: normal capillary refill, other (Left great toe callus formation and underlying ulcer 3.0 x 0.3 cm. No probe to bone. ) Neuro/Psych: alert, normal mood/affect, oriented x 3 ICD10 Worksheet Patient Problems: Problems Problem Status Onset Diabetic foot infection Acute Ulcer of left great toe due to diabetes mellitus Acute Depression Acute Hepatitis C virus infection Acute Nicotine dependence Acute Pneumonia Acute - ICD10 Problem Qualifiers (1) Ulcer of left great toe due to diabetes mellitus (2) Diabetic foot infection
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
[2017-07-12] MEDS: VENLAFAXINE XR 75 MG CAP PO SCH (21:03)
[2017-07-12] MEDS: INSULIN GLARGINE 100 UNITS/ML SYRINGE SC SCH (21:07)
[2017-07-12] MEDS: LORazepam 0.5 MG TAB PO PRN (22:41)
[2017-07-13] MEDS: HYDROmorphONE/DILAUDID 1 MG/ML INJ IVP PRN ×4 (02:20→14:30)
[2017-07-13] MEDS: AMPICILLIN/SULBACTAM 3 GM in NS 100 ML IV SCH ×3 (02:21→15:09)
[2017-07-13] MEDS: tiZANidine HCL 2 MG TAB PO SCH ×3 (06:10→23:19)
[2017-07-13] MEDS: INSULIN LISPRO 100 UNIT/ML SC SCH ×3 (08:19→17:46)
[2017-07-13] MEDS: morphINE SR 60 MG TAB PO SCH ×2 (09:12→20:58)
[2017-07-13] MEDS: amLODIPine BESYLATE 5 MG TAB PO SCH (09:12)
[2017-07-13] MEDS: LISINOPRIL 40 MG TAB PO SCH (09:12)
[2017-07-13] MEDS: HYDROCHLOROTHIAZIDE 25 MG TAB PO SCH (09:13)
[2017-07-13] MEDS: GABAPENTIN 100 MG CAP PO SCH ×3 (09:15→21:59)
[2017-07-13] MEDS: NADOLOL 20 MG TAB PO SCH (09:15)
[2017-07-13] MEDS: Meloxicam [Meloxicam] 7.5 MG PO SCH (09:15)
[2017-07-13] MEDS: NALTREXONE PO SCH ×2 (10:24→20:50)
[2017-07-13] MEDS: MORPHINE SULFATE PO SCH ×2 (10:24→20:50)
--- NOTE | 2017-07-13 11:38 | SOAPPROG ---
SOAP Progress Note Assessment/Plan: Assessment: 62 year old male with DM peripheral neuropathy with left great toe ulcer and cellulitis. Plan: MRI: No evidence of osteo. Wound culture: no organisms seen on gram stain. Dressing removed. Wound evaluated with Leonor from wound care. Will begin silvasorb ointment topically. Continue IV antibiotics (unasyn) per hospitalist recommendation (wound culture pending). Discussed outpatient podiatric foot care with patient. He was given my office number to schedule. Subjective: The patient was seen at bedside. No complaints. Objective: Vital Signs Temp Pulse Resp BP Pulse Ox 36.6 C 53 L 14 105/71 95 07/13/17 11:23 07/13/17 11:23 07/13/17 11:23 07/13/17 11:23 07/13/17 11:23 Microbiology 07/12/17 18:40 Gram Stain - Final Toe - Eswab 07/12/17 18:40 Mycobacterial Smear (YADI) - Final Toe - Eswab Mycobacterial Culture - Final 07/12/17 07/13/17 07/14/17 05:59 05:59 05:59 Intake Total 1675 515 Balance 1675 515 Physical Exam - Physical Exam General Appearance: alert, no apparent distress Peripheral Pulses: 1+: dorsalis-pedis (L) Skin: other (Cellulitis with lymphangitis dorsal foot, appears to be resolving gradually. Superficial ulcer distal left great toe 3.0 cm x 0.3cm with surrounding erythema and edema present. No purulant drainage. No probe to bone. ) Extremities: normal capillary refill, swelling, other (cellulitis left great toe and dorsal foot. ) Neuro/Psych: alert, normal mood/affect, oriented x 3 ICD10 Worksheet Patient Problems: Problems Problem Status Onset Diabetic foot infection Acute Ulcer of left great toe due to diabetes mellitus Acute Depression Acute Hepatitis C virus infection Acute Nicotine dependence Acute Pneumonia Acute - ICD10 Problem Qualifiers (1) Ulcer of left great toe due to diabetes mellitus (2) Diabetic foot infection
--- NOTE | 2017-07-13 12:47 | HOSPPROG ---
Hospitalist Progress Note Assessment/Plan: 62y male with c/o toe pain. Today is my first encounter with the patient/ chart reviewed. #L diabetic foot ulcer/cellulits MRI doesn't show osteo or abscess cont IV unasyn cx pending #Diabetic w peripheral neuropathy follow blood glucose refusing finger sticks stable #chronic pain on continuous opioids cut back on MS quick release dc iv Dilaudid #Personality disorder with chronic suicidal ideation appreciate Dr Ortiz no m1 hold needed #HTN stable #Hx Hep C #nicotine use #Plan: will ask ID to get involved/ foot, ankle area quite red and tender/ may need IV abx in the OP setting Subjective: Deo said his foot is hurting w activity. Objective: Vital Signs Temp Pulse Resp BP Pulse Ox 36.6 C 53 L 14 105/71 95 07/13/17 11:23 07/13/17 11:23 07/13/17 11:23 07/13/17 11:23 07/13/17 11:23 Microbiology 07/12/17 18:40 Gram Stain - Final Toe - Eswab 07/12/17 18:40 Mycobacterial Smear (YADI) - Final Toe - Eswab Mycobacterial Culture - Final 07/12/17 07/13/17 07/14/17 05:59 05:59 05:59 Intake Total 1675 515 Balance 1675 515 - Physical Exam Constitutional: appears nourished, uncomfortable, unkempt Eyes: PERRL Ears, Nose, Mouth, Throat: hearing normal Cardiovascular: regular rate and rhythym Respiratory: no respiratory distress Gastrointestinal: normoactive bowel sounds Skin: warm, other (left foot/toes with dressing in place/ ankle area red, warm, very tender) Musculoskeletal: full muscle strength Neurologic: AAOx3 Psychiatric: interacting appropriately ICD10 Worksheet Patient Problems: Problems Problem Status Onset Depression Acute Hepatitis C virus infection Acute Nicotine dependence Acute Pneumonia Acute Diabetic foot infection Acute Ulcer of left great toe due to diabetes mellitus Acute
--- NOTE | 2017-07-13 14:38 | WOCRNPDOC ---
KRISTINE Advanced Assessment Note - Skin Integrity Problem, Advanced Assess Left First Toe Diabetic Ulcer Dressing Type: Open to Air Exudate Amount: Scant Exudate Characteristic(s): Serous Carmen Wound Tissue: Erythema, Painful/Tender Wound Bed Color: Quentin Wound Bed Constitution: Smooth Tissue Site Odor: Moderate, Pungent Site Measurement - Head-to-Toe Length X Width X Depth (cm): 0.4x3x0.2 Skin Integrity Problem Comment: I and D site and toe assessed with Dr. Colon. Wound is shallow but does appear infected. Will treat with silvasorb and small allevyn life at this time. Wound care will round again in one week.
[2017-07-13] MEDS ORDERED: IBUPROFEN 200 MG TAB PO PRN (15:56)
[2017-07-13] MEDS: VANCOMYCIN 1.25 GM in D5W 250 ML IV SCH (17:04)
[2017-07-13] MEDS: DOXEPIN HCL 10 MG CAP PO SCH (17:46)
[2017-07-13] MEDS: VENLAFAXINE XR 75 MG CAP PO SCH (20:58)
[2017-07-13] MEDS: INSULIN GLARGINE 100 UNITS/ML SYRINGE SC SCH (20:59)
[2017-07-14] MEDS: LORazepam 0.5 MG TAB PO PRN ×2 (01:57→10:36)
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
[2017-07-14] MEDS: VANCOMYCIN 1.25 GM in D5W 250 ML IV SCH (03:57)
[2017-07-14 08:50] VITALS: BP 162/72; PULSE 56; RESP 20; TEMP 97.6; O2SAT 97
[2017-07-14] MEDS: HYDROCHLOROTHIAZIDE 25 MG TAB PO SCH (08:52)
[2017-07-14] MEDS: NADOLOL 20 MG TAB PO SCH (08:53)
[2017-07-14] MEDS: INSULIN LISPRO 100 UNIT/ML SC SCH (08:53)
[2017-07-14] MEDS: amLODIPine BESYLATE 5 MG TAB PO SCH (08:53)
[2017-07-14] MEDS: LISINOPRIL 40 MG TAB PO SCH (08:53)
[2017-07-14] MEDS: GABAPENTIN 100 MG CAP PO SCH (08:53)
[2017-07-14] MEDS: morphINE SR 60 MG TAB PO SCH (08:53)
[2017-07-14] MEDS: Meloxicam [Meloxicam] 7.5 MG PO SCH (08:54)
[2017-07-14] MEDS: tiZANidine HCL 2 MG TAB PO SCH (08:57)
[2017-07-14 09:27] LABS: % IMMATURE GRANULYOCYTES 0.5 % (0.0-1.1); ABSOLUTE IMMATURE GRANULOCYTES 0.04 10^3/uL (0.00-0.10); ADD DIFF? NO; ADD MORPH? NO; ADD SCAN? NO; ATYPICAL LYMPHOCYTE FLAG 30 (0-99); FRAGMENT RBC FLAG 0 (0-99); HEMOGLOBIN 14.6 g/dL (13.7-17.5); LEFT SHIFT FLG 0 (0-99); LIPEMIA HEMOLYSIS FLAG 90 (0-99); MEAN CELL HEMOGLOBIN 29.5 pg (27.9-34.1); MEAN CELL HEMOGLOBIN CONCENTR. 34.8 g/dL (32.4-36.7); MEAN CELL VOLUME 84.8 fL (81.5-99.8); MEAN PLATELET VOLUME 9.2 fL (8.7-11.7); PLATELET CLUMPS FLAG 0 (0-99); PLATELET COUNT 126 10^3/uL (150-400); RED BLOOD CELL COUNT 4.95 10^6/uL (4.40-6.38); RED CELL DISTRIBUTION WIDTH 13.3 % (11.5-15.2)
[2017-07-14 09:51] LABS: ALANINE AMINOTRANSFERASE 38 IU/L (21-72); ALBUMIN 3.8 g/dL (3.5-5.0); ALKALINE PHOSPHATASE 66 IU/L (38-126); ANION GAP 13 mEq/L (8-16); ASPARTATE AMINOTRANSFERASE 30 IU/L (17-59); BILIRUBIN,TOTAL 0.5 mg/dL (0.1-1.4); CALCIUM 9.5 mg/dL (8.5-10.4); CARBON DIOXIDE 28 mEq/l (22-31); CHLORIDE 103 mEq/L (97-110); CREATININE 0.7 mg/dL (0.7-1.3); GLOMERULAR FILTRATION RATE > 60; GLUCOSE 92 mg/dL (70-100); POTASSIUM 4.3 mEq/L (3.5-5.2); SODIUM 144 mEq/L (134-144); TOTAL PROTEIN 7.2 g/dL (6.3-8.2)
[2017-07-14] MEDS: MORPHINE SULFATE PO SCH (10:50)
[2017-07-14] MEDS: NALTREXONE PO SCH (10:50)
--- NOTE | 2017-07-14 12:47 | GDS ---
[f rep st] DISCHARGE SUMMARY DIAGNOSES: 1. Left diabetic foot cellulitis. 2. Diabetic with peripheral neuropathy. 3. Chronic pain on continuous opioids. 4. Personality disorder with chronic suicidal ideation. 5. Hypertension. 6. History of hepatitis C. 7. Nicotine use. CONSULTANTS: MD Shani Nieves MD Tara T. Parks, DPM HISTORY OF PRESENT ILLNESS: Briefly, the patient is a 62-year-old male with past medical history of diabetes (type 2), hepatitis, cirrhosis, and hypertension, who presented to the emergency room on July 11 with complaints of left foot pain. In the emergency room, he was found to have cellulitis and bulla, which was unroofed by Dr. Ramya Colon on 07/12/2017. He was treated with IV Unasyn. The patient felt his infection was not improving, and he was subsequently seen by Dr. Karla Cole and started on vancomycin. Today, the patient has gone out to smoke on multiple occasions. He was told by the director of [facility] and by 2 nursing staff that he cannot go out and smoke. He continues to go out and smoke throughout the day and chew tobacco. He was escorted out by security. DISCHARGE CONDITION: I evaluated his vital signs: Blood pressure was 162/72, heart rate 56, respiratory rate 20, O2 sat in room air 97%, temperature 36.4 Celsius. DISCHARGE INSTRUCTIONS: None given, except by the nursing staff. RECOMMENDATION: If he would like treatment and not spend multiple times going outside smoking, we are happy to treat him. It is likely that he will return to the emergency room either today or tomorrow. /[id number]/MODL MTDD
--- NOTE | 2017-07-14 14:41 | ASDISCHSUM ---
Discharge Information Plan Status:Home with No Needs Medically Cleared to Leave: Discharge Date:07/14/2017 12:02 PM CM D/C Disposition: ADT D/C Disposition:Against Medical Advice Projected Discharge Date:07/14/2017 04:00 PM Transportation at D/C: Discharge Delay Reason: Follow-Up Date:07/14/2017 04:00 PM Discharge Slot: Final Diagnosis: Placement Information Referral Type:*Jail/SNF Referral ID:[id number] Provider Name: Address 1: Phone Number: Address 2: Fax Number: City: Selection Factors: State: Patient Contact Information Contact Name:SHAYY Relationship: Address: Home Phone: Work Phone: City: [facility] Phone: [facility]/[place] Code: Email: Financial Information Financial Class: Primary Plan Desc:MEDICARE INPATIENT Primary Plan Number:[id number] Secondary Plan Desc:MEDICAID [place] Secondary Plan Number:[id number] Assessment Information [facility] Initial CM Assessment Living Arrangements What is your living Answers: Alone arrangement? Who do you live with? Type Of Residence What kind of residence do Answers: House you live in? Discharge Plan Comments Coordination Status Comments Notes: Pt is a 62 y/o man admitted w/ diabetic foot infection. Pt is currently on IV antibotics. Pt resides at [facility]. Wound care is following pt at this time. PT is ordered and awaiting for recommendations. Needs are unclear at this time. CM to follow. Date Signed: 07/11/2017 03:58 PM Electronically Signed By:BERTA Owen [facility] CM Progress Note CM Note CM Note Notes: Pt had a psych consult yesterday by Shani Ortiz MD. Shani did not deemed that pt is currently at risk for ending his life. Podiatry has been ordered to evaluate his toe. Pt may need possible surgical intervention. CM available for d/c needs. Date Signed: 07/12/2017 04:42 PM Electronically Signed By:BERTA Owen [facility] Progress Note CM Note CM Note Notes: Pt leaving, escorted by security. Pt coninuously non compliant w/staying in hospital, keeps leaving to smoke despite being educated on the need to stay on unit. CM called Lisandro Orellana and notified Natali that pt leaving d/t being non compliant w/care. She was coming to hospital to speak w/pt. Date Signed: 07/14/2017 02:40 PM Electronically Signed By:Leyla Starr RN Intervention Information Intervention Type:*RYLIE-Signed Date of Service:07/11/2017 09:07 AM Patient Type:Observation Staff Member:Cleo Bean Hours: Discipline: Severity: Comment:
== END 2017-07-14 12:02 | disposition left against medical advice (07) | DRG 638 ==
LOC: EDUNIT# → F3E 05:25 → OBSVTOIN 14:34
PROVIDERS: ADMIT Family Medicine; ATTEND Hospitalist
DX: E11.622 Type 2 diabetes mellitus with other skin ulcer (principal); L97.509 Non-pressure chronic ulcer of other part of unspecified foot with unspecified severity; L03.116 Cellulitis of left lower limb; E11.43 Type 2 diabetes mellitus with diabetic autonomic (poly)neuropathy; E11.65 Type 2 diabetes mellitus with hyperglycemia; G89.29 Other chronic pain; F11.20 Opioid dependence, uncomplicated; B19.20 Unspecified viral hepatitis C without hepatic coma; K74.60 Unspecified cirrhosis of liver; I10 Essential (primary) hypertension; F32.9 Major depressive disorder, single episode, unspecified; F41.9 Anxiety disorder, unspecified; N40.0 Benign prostatic hyperplasia without lower urinary tract symptoms; F17.210 Nicotine dependence, cigarettes, uncomplicated; J44.9 Chronic obstructive pulmonary disease, unspecified; F12.90 Cannabis use, unspecified, uncomplicated; F60.9 Personality disorder, unspecified; Z79.4 Long term (current) use of insulin; Z66 Do not resuscitate
CPT/HCPCS: 96365; A9585; J0295; J1170; J1815; J3370

== ENCOUNTER 2017-07-14 15:18 | Emergency (ER) | payer OTHER, MEDICAID ==
[2017-07-14 15:27] VITALS: RESP 16; TEMP 97.9
--- NOTE | 2017-07-14 15:31 | EDPHY ---
H & P Stated Complaint: discharge priot to infectious disease eval. Time Seen by Provider: 07/14/17 15:31 HPI/ROS: CHIEF COMPLAINT: [ ] HISTORY OF PRESENT ILLNESS: [Need 4: Location, Duration, Severity, Quality, Context, Timing Modifying Factors, Associated S&S] REVIEW OF SYSTEMS: A comprehensive 10 point review of systems is otherwise negative aside from elements mentioned in the history of present illness. Source: Patient Exam Limitations: No limitations - Personal History Current Tetanus Diphtheria and Acellular Pertussis (TDAP): Yes Tetanus Vaccine Date: 08/02 - Medical/Surgical History Hx Asthma: No Hx Chronic Respiratory Disease: No Hx Diabetes: Yes Hx Cardiac Disease: No Hx Renal Disease: Yes Hx Cirrhosis: Yes Hx Alcoholism: No Hx HIV/AIDS: No Hx Splenectomy or Spleen Trauma: No Other PMH: End-stage Hepatitis C, cirrhosis, diabetes, osteoarthritis, foot surgery, opiate dependence, chronic abdominal and leg pain - Social History Smoking Status: Current every day smoker - Physical Exam Exam: General Appearance: [Alert, no distress] Eyes: [Pupils equal and round no pallor or injection] ENT, Mouth: [Mucous membranes moist] Respiratory: [There are no retractions, lungs are clear to auscultation] Cardiovascular: [Regular rate and rhythm] Gastrointestinal: [Abdomen is soft and nontender, no masses, bowel sounds normal] Neurological: [A&O, normal motor function, normal sensory exam, normal cranial nerves] Skin: [Warm and dry, no rashes] Musculoskeletal: [Neck is supple nontender] Extremities: [symmetrical, full range of motion] Psychiatric: [Patient is oriented X 3, there is no agitation] Constitutional: Initial Vital Signs Temperature (C) 36.6 C 07/14/17 15:24 Heart Rate 66 07/14/17 15:24 Respiratory Rate 16 07/14/17 15:24 Blood Pressure 136/69 H 07/14/17 15:24 O2 Sat (%) 96 07/14/17 15:24 O2 Delivery Mode Room Air Allergies/Adverse Reactions: cyclobenzaprine HCl [From Flexeril] Allergy (Verified 07/11/17 02:41) mold Allergy (Uncoded 07/11/17 02:41) seasonal allergies Allergy (Uncoded 07/11/17 02:41) Home Medications: Medication Instructions Recorded Hydrochlorothiazide [HCTZ (*)] 12.5 mg PO DAILY #15 tab 03/04/15 Lisinopril [Zestril 40 mg (*)] 40 mg PO DAILY #30 tab 03/04/15 Doxepin HCl [SINEquan 10 MG (*)] 10 mg PO DAILY18 07/11/17 Ergocalciferol [Vitamin D2 (*)] 50,000 unit PO TU 07/11/17 Insulin Glargine [Lantus 100 52 units SC HS 07/11/17 UNITS/ML (*)] Loperamide HCl [Imodium 2 mg (*)] 4 mg PO DAILY PRN 07/11/17 Mag Hydrox/Al Hydrox/Simeth 30 ml PO Q6PRN PRN 07/11/17 [Maalox Maximum Strength Suspension] Magnesium Hydroxide [Milk of 30 ml PO DAILY PRN 07/11/17 Magnesia] Meloxicam 7.5 mg PO DAILY 07/11/17 Miconazole Nitrate [Micatin 2% 1 elizabeth TP DAILY PRN 07/11/17 Cream (*)] Morphine Sulfate/Naltrexone 1 each PO BID@07/11/17 [Embeda ER 50-2 mg Capsule] Nadolol [Nadolol 20 mg (*)] 20 mg PO DAILY 07/11/17 Venlafaxine Xr [Effexor Xr 75MG 150 mg PO HS 07/11/17 (*)] diphenhydrAMINE [Benadryl 25 MG 25 mg PO DAILY PRN 07/11/17 (*)] tiZANidine HCL [Zanaflex 2MG (*)] 4 mg PO TID@,,07/11/17 Departure - Departure Referrals: Misha Salcedo MD [Primary Care Provider] - As per Instructions
--- NOTE | 2017-07-14 16:25 | EDPHY ---
ED Progress Note Narrative: The patient was brought to the emergency department to be evaluated by infectious disease. He was not seen by the emergency room physician. Dr. Chan tells me he has recommended the patient be discharged back to [facility] with oral Keflex and doxycycline.
--- NOTE | 2017-07-14 16:56 | PDCONSULT ---
Device Engineer Note: I did not see this patient. I am assisting Dr Dumont with the discharge paperwork for Lisandro Orellana
[2017-07-14 17:34] VITALS: BP 131/66; PULSE 62; O2SAT 97
--- NOTE | 2017-07-14 18:03 | ASMTCMCOM ---
CM Note CM Note Notes: Patient discharged via cab voucher back to [facility] with DC plan to take oral antibiotics and follow up with PCP. Spoke with FLORI Keen at and she confirmed she received faxed orders of home meds, new oral antibiotics and other ED visit notes. Date Signed: 07/14/2017 06:03 PM Electronically Signed By:Jessica Melchor RN
--- NOTE | 2017-07-14 18:06 | ASDISCHSUM ---
Discharge Information Plan Status:Assisted Living Medically Cleared to Leave: Discharge Date:07/14/2017 05:32 PM CM D/C Disposition:Assisted Living ADT D/C Disposition:Home, Routine, Self-Care Projected Discharge Date:07/14/2017 05:32 PM Transportation at D/C:Cab Voucher Discharge Delay Reason: Follow-Up Date:07/14/2017 05:32 PM Discharge Slot: Final Diagnosis: Placement Information Patient Contact Information Contact Name:SHAYY Relationship: Address: Home Phone: Work Phone: City: Alternate Phone: State/Zip Code: Email: Financial Information Financial Class: Primary Plan Desc:MEDICARE OUTPATIENT Primary Plan Number:[id number] Secondary Plan Desc:MEDICAID HEALTH FIRST [place] OP Secondary Plan Number:[id number] Assessment Information [facility] CM Progress Note CM Note CM Note Notes: Patient discharged via cab voucher back to [facility] with DC plan to take oral antibiotics and follow up with PCP. Spoke with FLORI Keen at and she confirmed she received faxed orders of home meds, new oral antibiotics and other ED visit notes. Date Signed: 07/14/2017 06:03 PM Electronically Signed By:Jessica Melchor RN LACE LACE Comorbidities - select Answers: Diabetes without all that apply complications Emergency dept visits in Answers: 4+ last 6 months Score: 5 Date Signed: 07/14/2017 06:05 PM Electronically Signed By:Jessica Melchor RN Intervention Information
== END 2017-07-14 17:32 | disposition left against medical advice (07) ==
DX: Z53.21 Procedure and treatment not carried out due to patient leaving prior to being seen by health care provider (principal)

== ENCOUNTER 2017-07-27 16:36 | Emergency (ER) | payer OTHER, MEDICAID ==
--- NOTE | 2017-07-27 16:38 | EDPHY ---
H & P Time Seen by Provider: 07/27/17 16:37 HPI/ROS: CHIEF COMPLAINT: Chest pain HISTORY OF PRESENT ILLNESS: The patient is a diabetic 62 y/o male arriving via EMS complaining of chest pain. Onset of chest pain 13 hours ago, waxing and waning since then. The pain is aggravated with deep inspiration and cough. He has mild pain relief when he holds his hands above his head. No exertional symptoms. He was admitted to this hospital on 07/11/17, 16 days ago, for foot cellulitis and treated with IV abx. He has been decreasing his morphine use for the last several days. Denies fever, cough, recent illness, shortness of breath or other pertinent symptoms. REVIEW OF SYSTEMS: Aside from elements discussed in the HPI, a comprehensive 10-point review of systems was reviewed and is negative. Past Medical/Surgical History: Diabetic with peripheral neuropathy, cirrhosis chronic pain, personality disorder, hypertension, Hepatitis C Social History: Lives in [place], single, everyday smoker Smoking Status: Current every day smoker Physical Exam: General Appearance: Alert, no distress Eyes: Pupils equal and round, no conjunctival pallor or injection ENT, Mouth: Mucous membranes moist Neck: Normal inspection Respiratory: Lungs are clear to auscultation Cardiovascular: Normal inspection, Right-sided chest wall point tenderness. Regular rate and rhythm Gastrointestinal: Abdomen is soft and non-tender Neurological: A&O, nonfocal, normal gait Skin: Warm and dry, no rash Extremities: Nontender, no pedal edema Psychiatric: Mood and affect normal Constitutional: Initial Vital Signs Temperature (C) 36.7 C 07/27/17 16:45 Heart Rate 55 L 07/27/17 16:45 Respiratory Rate 17 07/27/17 16:45 Blood Pressure 169/88 H 07/27/17 16:45 O2 Sat (%) 95 07/27/17 16:45 O2 Delivery Mode Room Air Allergies/Adverse Reactions: cyclobenzaprine HCl [From Flexeril] Allergy (Verified 07/28/17 23:40) mold Allergy (Uncoded 07/28/17 23:40) seasonal allergies Allergy (Uncoded 07/28/17 23:40) Home Medications: Medication Instructions Recorded Hydrochlorothiazide [HCTZ (*)] 12.5 mg PO DAILY #15 tab 03/04/15 Lisinopril [Zestril 40 mg (*)] 40 mg PO DAILY #30 tab 03/04/15 Doxepin HCl [SINEquan 10 MG (*)] 10 mg PO DAILY18 07/11/17 Ergocalciferol [Vitamin D2 (*)] 50,000 unit PO TU 07/11/17 Insulin Glargine [Lantus 100 52 units SC HS 07/11/17 UNITS/ML (*)] Loperamide HCl [Imodium 2 mg (*)] 4 mg PO DAILY PRN 07/11/17 Mag Hydrox/Al Hydrox/Simeth 30 ml PO Q6PRN PRN 07/11/17 [Maalox Maximum Strength Suspension] Magnesium Hydroxide [Milk of 30 ml PO DAILY PRN 07/11/17 Magnesia] Meloxicam 7.5 mg PO DAILY 07/11/17 Miconazole Nitrate [Micatin 2% 1 elizabeth TP DAILY PRN 07/11/17 Cream] Morphine Sulfate/Naltrexone 1 each PO BID@07/11/17 [Embeda ER 50-2 mg Capsule] Nadolol [Nadolol 20 mg (*)] 20 mg PO DAILY 07/11/17 Venlafaxine Xr [Effexor Xr 75MG 150 mg PO HS 07/11/17 (*)] diphenhydrAMINE [Benadryl 25 MG 25 mg PO DAILY PRN 07/11/17 (*)] tiZANidine HCL [Zanaflex 2MG (*)] 4 mg PO TID@,,07/11/17 Cephalexin [Keflex] 500 mg PO TID #21 cap 07/14/17 Doxycycline Hyclate 100 mg PO BID #14 tablet 07/14/17 Medical Decision Making - Diagnostics EKG Interpretation: EKG interpreted by me reveals normal sinus rhythm with a rate of 51, normal axis , normal intervals, AV block, ST and T segments normal. Interpretation: AV block Imaging Results: Chest x-ray independently reviewed by me reveals no acute disease. Imaging: I viewed and interpreted images myself ED Course/Re-evaluation: The patient is a diabetic 62 y/o male arriving via EMS, presenting with right- sided chest pain. EKG reveals no evidence of ischemia or dysrhythmia. Low risk for PE per Well's criteria. Given normal vital signs and oxygen saturation , I do not feel that evaluation for pulmonary embolism is indicated. Given prolonged pain of greater than 12 hours and no evidence of ischemia on EKG, if a troponin is normal, I feel that I can safely exclude acute coronary syndrome. Patient declines pain medications. Reassessed patient and discussed laboratory and imaging results. Laboratory studies and chest x-ray are unremarkable. Continues to have right-sided chest wall tenderness. Most likely musculoskeletal etiology of pain. Return precautions provided; patient is comfortable with this plan. Differential Diagnosis: Differential diagnosis includes though it is not limited to pneumonia, pneumothorax, pulmonary embolism, aortic dissection, pericarditis, acute coronary syndrome. - Data Points Laboratory Results: Laboratory Results 07/27/17 16:40 07/27/17 16:40 Departure - Departure Disposition: Home, Routine, Self-Care Clinical Impression: Chest wall pain Condition: Good Instructions: Chest Wall Pain (ED) Additional Instructions: Take Tylenol or ibuprofen as needed for pain. Follow-up with your primary doctor within 72 hours. Return to the Emergency Department for fever, chest pain, shortness of breath, increasing pain or other worsening of condition. Referrals: [facility],. [Clinic] - As per Instructions Report Scribed for: hCika Mcintosh Report Scribed by: Qi Avalos Date of Report: 07/27/17 Time of Report: 16:38 Physician Review and Approval Statement: 07/27/17 16:38 Portions of this note were transcribed by a medical office clerk. I personally performed a history, physical exam, medical decision making, and confirmed accuracy of information the transcribed note.
--- NOTE | 2017-07-27 16:46 | CPEKG ---
Heart Rate: 51 RR Interval: 1176 P-R Interval: 240 QRSD Interval: 84 QT Interval: 440 QTC Interval: 406 P Mitchell: -28 QRS Mitchell: 34 T Wave Mitchell: 60 EKG Severity - ABNORMAL ECG - EKG Impression: SINUS RHYTHM EKG Impression: FIRST DEGREE AV BLOCK Electronically Signed By: Chika Mcintosh 27-Jul-2017 21:31:32
[2017-07-27 16:47] VITALS: TEMP 98.1
[2017-07-27 17:12] LABS: % IMMATURE GRANULYOCYTES 0.5 % (0.0-1.1); ABSOLUTE IMMATURE GRANULOCYTES 0.05 10^3/uL (0.00-0.10); ADD DIFF? NO; ADD MORPH? NO; ADD SCAN? NO; ATYPICAL LYMPHOCYTE FLAG 0 (0-99); FRAGMENT RBC FLAG 0 (0-99); HEMATOCRIT 45.4 % (40.0-51.0); HEMOGLOBIN 16.1 g/dL (13.7-17.5); LEFT SHIFT FLG 0 (0-99); LIPEMIA HEMOLYSIS FLAG 90 (0-99); MEAN CELL HEMOGLOBIN 29.7 pg (27.9-34.1); MEAN CELL HEMOGLOBIN CONCENTR. 35.5 g/dL (32.4-36.7); MEAN CELL VOLUME 83.6 fL (81.5-99.8); MEAN PLATELET VOLUME 9.6 fL (8.7-11.7); PLATELET CLUMPS FLAG 40 (0-99); PLATELET COUNT 154 10^3/uL (150-400); RED BLOOD CELL COUNT 5.43 10^6/uL (4.40-6.38); RED CELL DISTRIBUTION WIDTH 13.7 % (11.5-15.2)
[2017-07-27 17:16] LABS: ANION GAP 12 mEq/L (8-16); CALCIUM 9.7 mg/dL (8.5-10.4); CARBON DIOXIDE 23 mEq/l (22-31); CHLORIDE 109 mEq/L (97-110); CREATININE 0.7 mg/dL (0.7-1.3); GLOMERULAR FILTRATION RATE > 60; GLUCOSE 122 mg/dL (70-100); POTASSIUM 3.9 mEq/L (3.5-5.2); SODIUM 144 mEq/L (134-144)
[2017-07-27 17:27] LABS: TROPONIN I 0.016 ng/mL (0.000-0.034)
[2017-07-27 17:37] VITALS: BP 148/71; PULSE 52; RESP 18; O2SAT 97
== END 2017-07-27 18:09 | disposition home or self-care (01) ==
LOC: EDUNIT#
DX: R07.89 Other chest pain (principal); I10 Essential (primary) hypertension; F17.200 Nicotine dependence, unspecified, uncomplicated; E11.9 Type 2 diabetes mellitus without complications; Z79.4 Long term (current) use of insulin

== ENCOUNTER 2017-07-28 23:37 | Emergency (ER) | payer OTHER, MEDICAID ==
[2017-07-28 23:43] VITALS: RESP 16; TEMP 97.9; O2SAT 95
--- NOTE | 2017-07-29 00:13 | EDPHY ---
H & P Stated Complaint: blood in stool hx of hemorrhoids Time Seen by Provider: 07/29/17 00:09 HPI/ROS: Chief Complaint: Blood in stool HPI: 62-year-old male with a history of hepatitis-C presenting with blood in his stool for the last 24 hours. Patient states that he is passing blood when he has a loose bowel movement. Stool is brown. No dark black bowel movements. No pain. Does have a history of hemorrhoids but has not been having any rectal swelling pain recently. No nausea or vomiting. No abdominal pain. No lightheadedness or fainting. ROS: 10 point Review of Systems is negative except as noted in the HPI. PMH: Hepatitis-C, cirrhosis Social History: No smoking, no alcohol, no recreational drug use Family History: non-contributory Physical Exam: Gen: Awake, Alert, No Distress HEENT: Nose: no rhinorrhea Eyes: PERRLA, EOMI Mouth: Moist mucosa Neck: Supple, no JVD Chest: nontender, lungs clear to auscultation Heart: S1, S2 normal, no murmur Abd: Soft, non-tender, no guarding Rectal: No hemorrhoids, brown stool, no fissures Back: no CVA tenderness, no midline tenderness Ext: no edema, non-tender Skin: no rash Neuro: CN II-XII intact, Sensation grossly intact, Strength 5/5 in bilateral upper and lower extremities - Personal History Current Tetanus Diphtheria and Acellular Pertussis (TDAP): Yes Tetanus Vaccine Date: 08/02 - Medical/Surgical History Hx Asthma: No Hx Chronic Respiratory Disease: No Hx Diabetes: Yes Hx Cardiac Disease: No Hx Renal Disease: Yes Hx Cirrhosis: Yes Hx Alcoholism: No Hx HIV/AIDS: No Hx Splenectomy or Spleen Trauma: No Other PMH: End-stage Hepatitis C, cirrhosis, diabetes, osteoarthritis, foot surgery, opiate dependence, chronic abdominal and leg pain, hemorrhoids - Social History Smoking Status: Current every day smoker Constitutional: Initial Vital Signs Temperature (C) 36.6 C 07/28/17 23:40 Heart Rate 63 07/28/17 23:40 Respiratory Rate 16 07/28/17 23:40 Blood Pressure 153/90 H 07/28/17 23:40 O2 Sat (%) 95 07/28/17 23:40 O2 Delivery Mode Room Air Allergies/Adverse Reactions: cyclobenzaprine HCl [From Flexeril] Allergy (Verified 07/28/17 23:40) mold Allergy (Uncoded 07/28/17 23:40) seasonal allergies Allergy (Uncoded 07/28/17 23:40) Home Medications: Medication Instructions Recorded Hydrochlorothiazide [HCTZ (*)] 12.5 mg PO DAILY #15 tab 03/04/15 Lisinopril [Zestril 40 mg (*)] 40 mg PO DAILY #30 tab 03/04/15 Doxepin HCl [SINEquan 10 MG (*)] 10 mg PO DAILY18 07/11/17 Ergocalciferol [Vitamin D2 (*)] 50,000 unit PO TU 07/11/17 Insulin Glargine [Lantus 100 52 units SC HS 07/11/17 UNITS/ML (*)] Loperamide HCl [Imodium 2 mg (*)] 4 mg PO DAILY PRN 07/11/17 Mag Hydrox/Al Hydrox/Simeth 30 ml PO Q6PRN PRN 07/11/17 [Maalox Maximum Strength Suspension] Magnesium Hydroxide [Milk of 30 ml PO DAILY PRN 07/11/17 Magnesia] Meloxicam 7.5 mg PO DAILY 07/11/17 Miconazole Nitrate [Micatin 2% 1 elizabeth TP DAILY PRN 07/11/17 Cream] Morphine Sulfate/Naltrexone 1 each PO BID@07/11/17 [Embeda ER 50-2 mg Capsule] Nadolol [Nadolol 20 mg (*)] 20 mg PO DAILY 07/11/17 Venlafaxine Xr [Effexor Xr 75MG 150 mg PO HS 07/11/17 (*)] diphenhydrAMINE [Benadryl 25 MG 25 mg PO DAILY PRN 07/11/17 (*)] tiZANidine HCL [Zanaflex 2MG (*)] 4 mg PO TID@,,07/11/17 Cephalexin [Keflex] 500 mg PO TID #21 cap 07/14/17 Doxycycline Hyclate 100 mg PO BID #14 tablet 07/14/17 Medical Decision Making ED Course/Re-evaluation: Patient presenting with bloody stools last 24 hours. He is normal vital signs. He has a normal H&H. His coags are normal. He has brown stool which is heme- positive. There is no hematochezia at this time. He has not had any bloody stools since he has been in the department he has been ambulating unassisted. He will need follow up with Gastroenterology for a colonoscopy. He has been given instructions return for worsening symptoms. - Data Points Laboratory Results: Laboratory Results 07/29/17 00:55 07/29/17 00:55 07/29/17 07/29/17 07/29/17 02:07 00:55 00:55 WBC RBC Hgb Hct MCV MCH MCHC RDW Plt Count MPV Neut % (Auto) Lymph % (Auto) [place] % (Auto) Eos % (Auto) Baso % (Auto) Nucleat RBC Rel Count Absolute Neuts (auto) Absolute Lymphs (auto) Absolute Monos (auto) Absolute Eos (auto) Absolute Basos (auto) Absolute Nucleated RBC Immature Gran % Immature Gran # PT 14.3 SEC SEC (12.0-15.0) INR 1.12 (0.83-1.16) APTT 23.3 SEC SEC (23.0-38.0) Sodium 147 mEq/L H mEq/L (134-144) Potassium 3.6 mEq/L mEq/L (3.5-5.2) Chloride 111 mEq/L H mEq/L (97-110) Carbon Dioxide 23 mEq/l mEq/l (22-31) Anion Gap 13 mEq/L mEq/L (8-16) BUN 32 mg/dL H mg/dL (7-23) Creatinine 0.8 mg/dL mg/dL (0.7-1.3) Estimated GFR > 60 Glucose 125 mg/dL H mg/dL (70-100) Calcium 9.4 mg/dL mg/dL (8.5-10.4) Stool Occult Bld Scrn POSITIVE H (NEGATIVE) 07/29/17 00:55 WBC 13.19 10^3/uL H 10^3/uL (3.80-9.50) RBC 5.14 10^6/uL 10^6/uL (4.40-6.38) Hgb 15.5 g/dL g/dL (13.7-17.5) Hct 42.5 % % (40.0-51.0) MCV 82.7 fL fL (81.5-99.8) MCH 30.2 pg pg (27.9-34.1) MCHC 36.5 g/dL g/dL (32.4-36.7) RDW 13.5 % % (11.5-15.2) Plt Count 154 10^3/uL 10^3/uL (150-400) MPV 9.2 fL fL (8.7-11.7) Neut % (Auto) 56.1 % % (39.3-74.2) Lymph % (Auto) 35.4 % % (15.0-45.0) [place] % (Auto) 7.1 % % (4.5-13.0) Eos % (Auto) 0.8 % % (0.6-7.6) Baso % (Auto) 0.2 % L % (0.3-1.7) Nucleat RBC Rel Count 0.0 % % (0.0-0.2) Absolute Neuts (auto) 7.41 10^3/uL H 10^3/uL (1.70-6.50) Absolute Lymphs (auto) 4.67 10^3/uL H 10^3/uL (1.00-3.00) Absolute Monos (auto) 0.93 10^3/uL H 10^3/uL (0.30-0.80) Absolute Eos (auto) 0.10 10^3/uL 10^3/uL (0.03-0.40) Absolute Basos (auto) 0.03 10^3/uL 10^3/uL (0.02-0.10) Absolute Nucleated RBC 0.00 10^3/uL 10^3/uL (0-0.01) Immature Gran % 0.4 % % (0.0-1.1) Immature Gran # 0.05 10^3/uL 10^3/uL (0.00-0.10) PT INR APTT Sodium Potassium Chloride Carbon Dioxide Anion Gap BUN Creatinine Estimated GFR Glucose Calcium Stool Occult Bld Scrn Departure - Departure Disposition: Home, Routine, Self-Care Clinical Impression: Rectal bleeding Condition: Good Instructions: Rectal Bleeding (ED) Additional Instructions: Follow up with Gastroenterology, Dr. Wang, in 2-3 days for further evaluation. Follow up with primary care physician in 2-3 days for reassessment. Return to the emergency department for persistent blood from the rectum. Abdominal pain, lightheadedness, fainting, or any other concerns. Referrals: Misha Salcedo MD [Primary Care Provider] - As per Instructions Varun Wang MD, FACG [Medical Doctor] - As per Instructions
[2017-07-29 01:09] LABS: % IMMATURE GRANULYOCYTES 0.4 % (0.0-1.1); ABSOLUTE IMMATURE GRANULOCYTES 0.05 10^3/uL (0.00-0.10); ADD DIFF? NO; ADD MORPH? NO; ADD SCAN? NO; ATYPICAL LYMPHOCYTE FLAG 0 (0-99); FRAGMENT RBC FLAG 0 (0-99); HEMATOCRIT 42.5 % (40.0-51.0); HEMOGLOBIN 15.5 g/dL (13.7-17.5); LEFT SHIFT FLG 0 (0-99); LIPEMIA HEMOLYSIS FLAG 90 (0-99); MEAN CELL HEMOGLOBIN 30.2 pg (27.9-34.1); MEAN CELL HEMOGLOBIN CONCENTR. 36.5 g/dL (32.4-36.7); MEAN CELL VOLUME 82.7 fL (81.5-99.8); MEAN PLATELET VOLUME 9.2 fL (8.7-11.7); PLATELET CLUMPS FLAG 0 (0-99); PLATELET COUNT 154 10^3/uL (150-400); RED BLOOD CELL COUNT 5.14 10^6/uL (4.40-6.38); RED CELL DISTRIBUTION WIDTH 13.5 % (11.5-15.2)
[2017-07-29 01:17] LABS: APTT 23.3 SEC (23.0-38.0); INR 1.12 (0.83-1.16); PROTIME(PATIENT) 14.3 SEC (12.0-15.0)
[2017-07-29 01:19] LABS: ANION GAP 13 mEq/L (8-16); CALCIUM 9.4 mg/dL (8.5-10.4); CARBON DIOXIDE 23 mEq/l (22-31); CHLORIDE 111 mEq/L (97-110); CREATININE 0.8 mg/dL (0.7-1.3); GLOMERULAR FILTRATION RATE > 60; GLUCOSE 125 mg/dL (70-100); POTASSIUM 3.6 mEq/L (3.5-5.2); SODIUM 147 mEq/L (134-144)
[2017-07-29 02:45] VITALS: BP 142/98; PULSE 69
== END 2017-07-29 02:45 | disposition home or self-care (01) ==
LOC: EDUNIT#
DX: K62.5 Hemorrhage of anus and rectum (principal); F17.200 Nicotine dependence, unspecified, uncomplicated; E11.9 Type 2 diabetes mellitus without complications; Z79.4 Long term (current) use of insulin